=== PATIENT | female | born 1975 | race African-American/Black ===

== ENCOUNTER 2018-04-19 13:36 | Emergency (ER) | payer MEDICAID, OTHER ==
[~2018-04-19] VITALS: Ht 157.5 cm; Wt 83.9 kg
[2018-04-19 15:20] VITALS: BP 137/73
[2018-04-19] MEDS ORDERED: KETOROLAC TROMETH 60MG/2ML VIAL IM ONE (16:00)
== END 2018-04-19 16:27 | disposition home or self-care (01) ==
LOC: ER 13:44
DX: N39.0 Urinary tract infection, site not specified (principal); M79.10 Myalgia, unspecified site
CPT/HCPCS: 72100; 96372; 99283; J1885; 81025

== ENCOUNTER 2024-01-25 19:38 | Inpatient (IN) | payer BC, MEDICAID ==
[~2024-01-25] VITALS: Ht 157.5 cm; Wt 89.8 kg
[2024-01-25] MEDS: LIDOCAINE VISCOUS 2% 15ML UD PO ONE (20:11)
[2024-01-25] MEDS: FAMOTIDINE (10MG/ML) 2ML VL IV ONE (20:11)
[2024-01-25] MEDS: MAALOX PLUS or MAALOX 30 ML PO ONE (20:11)
[2024-01-25] MEDS: LORazepam 2MG/ML-1ML VIAL IV ONE (20:11)
[2024-01-25] MEDS: SODIUM CHLORIDE 0.9% 1,000 ML IV ONE (20:12)
[2024-01-25] MEDS: ONDANSETRON HCL 4 MG/2 ML VIAL IV ONE (20:12)
[2024-01-25 20:24] LABS: Eosinophils # (auto) 0.4 10 ^3/uL (0-0.8); Hematocrit 28.4 % (36.0-46.0); Hemoglobin 8.3 g/dL (12.2-16.2); Lymphocytes # (auto) 2.5 10 ^3/uL (0.4-5.4); Monocytes # (auto) 0.8 10 ^3/uL (0-1.3); Neutrophils # (auto) 7.6 10 ^3/uL (1.6-8.6); Nucleated Red Blood Cells % 0.1 %
[2024-01-25 20:25] LABS: Basophils # (auto) 0.1 10 ^3/uL (0-0.2); Basophils % (auto) 0.6 % (0.0-2.0); Eosinophils % (auto) 3.2 % (0.0-7.0); Lymphocytes % (auto) 22.4 % (10.0-50.0); Mean Corpuscular Hemoglobin 17.7 pg (28.0-32.0); Mean Corpuscular Hgb Conc. 29.2 g/dL (32.0-36.0); Mean Corpuscular Volume 60.9 fL (80.0-100.0); Monocytes % (auto) 6.7 % (0.0-12.0); Neutrophils % (auto) 67.1 % (37.0-80.0); Platelet Count (auto) 586 10^3/uL (140-450); Red Blood Cells 4.67 10^6/uL (4.0-5.20); Red Cell Distribution Width 18.8 % (11.8-14.3); White Blood Cell 11.3 10^3/uL (4.4-10.8)
[2024-01-25 20:39] LABS: INR 0.99 (0.9-1.15); Partial Thromboplastin Time 25.9 SEC (24.5-34.5); Prothrombin Time 10.5 sec (9.3-11.8)
[2024-01-25 20:41] LABS: Alanine Aminotransferase 18 U/L (7-40); Albumin 4.2 g/dL (3.2-4.8); Alkaline Phosphatase 71 U/L (46-116); Anion Gap 4 (5-15); Aspartate Aminotransferase 17 U/L (13-40); Blood Urea Nitrogen 9 mg/dL (9-23); Calcium 9.6 mg/dL (8.7-10.4); Carbon Dioxide 25 mmol/L (20-30); Chloride 110 mmol/L (98-107); Glucose 74 mg/dL (74-106); Magnesium 1.9 mg/dL (1.6-2.6); Potassium 3.5 mmol/L (3.5-5.1); Sodium 139 mmol/L (136-145)
[2024-01-25 20:42] LABS: Bilirubin, Total 0.3 mg/dL (0.2-1.0); Total Protein 7.6 g/dL (5.7-8.2)
[2024-01-25 21:21] LABS: Anisocytosis Moderate; Hypochromia Marked; Large Platelets FEW; Platelet Estimate Increased
[2024-01-25] MEDS ORDERED: MORPHINE SULFATE INJ 2 MG/ml SYRG IV PRN (23:15)
[2024-01-25] MEDS ORDERED: NITROGLYCERIN 0.4 MG SL TAB SL PRN (23:15)
[2024-01-25] MEDS ORDERED: ONDANSETRON HCL 4 MG/2 ML VIAL IV PRN (23:15)
[2024-01-25] MEDS ORDERED: TEMAZEPAM 15 MG CAP PO PRN (23:15)
[2024-01-26] VITALS (7 sets, daily range): BP systolic 93–123; BP diastolic 43–83; PULSE 84–104; RESP 15–19; TEMP 97.7–98.6; O2SAT 96–98
[2024-01-26 00:16] LABS: Triglycerides 104 mg/dL (< 150)
[2024-01-26 00:17] LABS: LDL Cholesterol 125 mg/dL (< 100)
[2024-01-26 00:18] LABS: Cholesterol 173 mg/dL (< 200); HDL Cholesterol 38 mg/dL (40-59)
[2024-01-26 01:47] LABS: % Iron Saturation 3.5 % (15-50)
[2024-01-26 09:27] LABS: Basophils # (auto) 0 10 ^3/uL (0-0.2); Eosinophils # (auto) 0.3 10 ^3/uL (0-0.8); Hemoglobin 8.4 g/dL (12.2-16.2); Monocytes # (auto) 0.8 10 ^3/uL (0-1.3)
[2024-01-26 09:31] LABS: Basophils % (auto) 0.3 % (0.0-2.0); Eosinophils % (auto) 2.8 % (0.0-7.0); Lymphocytes # (auto) 1.7 10 ^3/uL (0.4-5.4); Lymphocytes % (auto) 18.4 % (10.0-50.0); Mean Corpuscular Hemoglobin 18.2 pg (28.0-32.0); Mean Corpuscular Hgb Conc. 30.1 g/dL (32.0-36.0); Mean Corpuscular Volume 60.4 fL (80.0-100.0); Monocytes % (auto) 8.7 % (0.0-12.0); Neutrophils # (auto) 6.5 10 ^3/uL (1.6-8.6); Neutrophils % (auto) 69.8 % (37.0-80.0); Platelet Count (auto) 524 10^3/uL (140-450); Red Blood Cells 4.63 10^6/uL (4.0-5.20); White Blood Cell 9.3 10^3/uL (4.4-10.8)
[2024-01-26 09:35] LABS: Red Cell Distribution Width 19.1 % (11.8-14.3)
[2024-01-26 09:47] LABS: Anion Gap 8 (5-15); Carbon Dioxide 22 mmol/L (20-30); Chloride 110 mmol/L (98-107); Potassium 3.8 mmol/L (3.5-5.1); Sodium 140 mmol/L (136-145)
[2024-01-26 09:48] LABS: Calcium 9.3 mg/dL (8.7-10.4)
[2024-01-26 09:53] LABS: BUN/Creatinine Ratio 8.1 (10.0-20.0); Blood Urea Nitrogen 6 mg/dL (9-23); Glucose 95 mg/dL (74-106)
[2024-01-26] MEDS: ASPirin 81 mg TAB PO SCH (09:55)
[2024-01-26 12:26] LABS: Urine Bacteria None Seen /hpf (None Seen)
[2024-01-26 12:57] LABS: Urine Mucus FEW (None Seen); Urine WBC 1 /hpf (0 - 5)
[2024-01-26 12:58] LABS: Urine Color Light Yellow (Yellow)
[2024-01-26 12:59] LABS: Urine Blood Normal /uL (Negative); Urine Clarity CLEAR (Clear); Urine Protein, UAD TRACE (Negative); Urine Specific Gravity 1.014 (1.001-1.035); Urine Urobilinogen Normal (Negative)
[2024-01-26 13:01] LABS: Amphetamine Screen, Urine Neg (NEGATIVE); Barbiturate Scree,Urine Neg (NEGATIVE); Benzodiazephine Screen, Urine Neg (NEGATIVE); Cannabinoid Screen, Urine Neg (NEGATIVE); Cocaine Screen, Urine Neg (NEGATIVE); Opiate Scree,Urine Neg (NEGATIVE); Phencyclidine Screen, Urine Neg (NEGATIVE)
[2024-01-26] MEDS ORDERED: IRON SUCROSE COMPLEX 100 ML IV SCH (14:00)
[2024-01-26] MEDS ORDERED: TRIAMCINOLONE ACET 0.1% TOPICAL CREAM 15GM TOP ONE (14:00)
[2024-01-26] MEDS: SODIUM FERR GLUC 62.5MG/5ML 110 ML IV SCH (14:07)
[2024-01-26] MEDS: TRIAMCINOLONE ACET 0.1% TOPICAL CREAM 15GM TOP SCH (15:09)
[2024-01-26] MEDS: diphenhdrAMINE HCL 25 MG CAP PO PRN (21:33)
[2024-01-27 01:00] VITALS: BP 108/57; PULSE 87; RESP 16; TEMP 97.5; O2SAT 98
[2024-01-27 05:00] VITALS: BP 124/73; PULSE 88; RESP 17; TEMP 98.2; O2SAT 100
[2024-01-27 07:58] LABS: Basophils # (auto) 0 10 ^3/uL (0-0.2); Basophils % (auto) 0.3 % (0.0-2.0); Eosinophils # (auto) 0.3 10 ^3/uL (0-0.8); Eosinophils % (auto) 4.6 % (0.0-7.0); Hematocrit 25.6 % (36.0-46.0); Hemoglobin 7.9 g/dL (12.2-16.2); Lymphocytes # (auto) 1.6 10 ^3/uL (0.4-5.4); Lymphocytes % (auto) 21.9 % (10.0-50.0); Mean Corpuscular Hemoglobin 18.9 pg (28.0-32.0); Mean Corpuscular Hgb Conc. 30.9 g/dL (32.0-36.0); Mean Corpuscular Volume 61.1 fL (80.0-100.0); Monocytes # (auto) 0.5 10 ^3/uL (0-1.3); Monocytes % (auto) 7.2 % (0.0-12.0); Neutrophils # (auto) 4.8 10 ^3/uL (1.6-8.6); Nucleated Red Blood Cells % 0.1 %; Platelet Count (auto) 527 10^3/uL (140-450); Red Cell Distribution Width 19.3 % (11.8-14.3); White Blood Cell 7.3 10^3/uL (4.4-10.8)
[2024-01-27 08:00] VITALS: PULSE 95; RESP 18; O2SAT 99
[2024-01-27 09:00] VITALS: BP 114/70; PULSE 95; RESP 18; TEMP 97.7; O2SAT 99
[2024-01-27 13:00] VITALS: BP 114/52; PULSE 84; RESP 20; TEMP 98.4; O2SAT 95
[2024-01-27] MEDS ORDERED: FERR140T5 PO (13:21)
[2024-01-27 14:26] VITALS: BP 114/70; PULSE 95; RESP 18; TEMP 36.9; O2SAT 99
== END 2024-01-27 16:21 | disposition home or self-care (01) | DRG 313 ==
LOC: ER 19:38 → TELE-WESTW 23:25 → TELE 23:25 → TELE-WESTW 01-26 03:45
PROVIDERS: ADMIT Nurse Practitioner; ATTEND Internal Medicine
DX: R07.89 Other chest pain (principal); L30.9 Dermatitis, unspecified; E66.9 Obesity, unspecified; E78.5 Hyperlipidemia, unspecified; D50.9 Iron deficiency anemia, unspecified; F41.9 Anxiety disorder, unspecified; Z79.899 Other long term (current) drug therapy; Z68.36 Body mass index [BMI] 36.0-36.9, adult
CPT/HCPCS: 36415; 71045; 80048; 80053; 80061; 80307; 81001; 83540; 83550; 83735; 83880; 84484; 85025; 85379; 85610; 85730; 93005; 93017; 93306; G0378; J2405; J3490